=== PATIENT | female | born 1990 | race Two or more races ===

== ENCOUNTER 2024-04-12 18:59 | Emergency (ER) | payer MEDICAID, SELFPAY ==
[2024-04-12 19:03] VITALS: PULSE 83; RESP 18; O2SAT 99
[2024-04-12 20:01] VITALS: BP 118/78; PULSE 78; RESP 18; TEMP 36.9; O2SAT 99
[2024-04-12 20:02] VITALS: BMI 33.3
--- NOTE | 2024-04-12 20:22 | XR_ITS ---
Examination: Abdomen sonogram, Limited Date and time of exam: April 12, 2024: 36 hours Indications: Abdominal pain 2 weeks, alcohol abuse history Technique: Real-time martinez scale transabdominal sonographic images of the upper abdomen obtained. Findings: 2.5 cm gallstone Gallbladder wall 0.3 cm no edema Common bile duct 0.3 cm Pancreatic head 2.8 cm Liver 13.5 cm fatty infiltration no focal liver lesions Normal hepatopedal portal venous flow Patent IVC Impression: Cholelithiasis, negative for cholecystitis Fatty liver
--- NOTE | 2024-04-12 20:22 | PD.EDRME ---
Rapid Medical Screening Exam [facility] Arrival date/time: 04/12/24 18:59 33F with history of daily alcohol intake due to depression presents to ED with 2 weeks of bilateral leg swelling and burning sensation, as well as some RUQ pain. Patient denies N/V and SOB. Time Seen by Provider: 04/12/24 19:02 Vital signs: Vital Signs Temperature 98.5 F 04/12/24 20:01 Pulse Rate 78 04/12/24 20:01 Respiratory Rate 18 04/12/24 20:01 Blood Pressure 118/78 04/12/24 20:01 Pulse Oximetry (%) 99 04/12/24 20:01 Oxygen Delivery Method Room Air 04/12/24 20:01
[2024-04-12 21:22] LABS: Basophils # (Auto) 0.1 Thou/mm3 (0.0-0.2); Basophils % (Auto) 1 % (0-2.5); Eosinophils # (Auto) 0.8 Thou/mm3 (0.0-0.5); Eosinophils % (Auto) 10 % (0-10); Hematocrit 38.3 % (36.0-46.0); Hemoglobin 13.2 g/dL (12.0-16.0); Immature Granulocytes % (Auto) 0 % (0-0); Immature Granulocytes Auto 0.02 Thou/mm3 (0.00-0.00); Lymphocytes # (Auto) 2.8 Thou/mm3 (1.0-4.8); Lymphocytes % (Auto) 33 % (10-50); Mean Corpuscular HGB Conc 34.5 g/dl (31.0-37.0); Mean Corpuscular Hemoglobin 30.1 pg (25.0-35.0); Mean Corpuscular Volume 87 fL (80-100); Monocytes # (Auto) 0.5 Thou/mm3 (0.0-0.8); Monocytes % (Auto) 6 % (0-12); Neutrophils # (Auto) 4.4 Thou/mm3 (1.8-7.7); Neutrophils % (Auto) 51 % (37-80); Nucleated Red Blood Cell % 0 /100 WBC (0); Platelet Count 223 Thou/mm3 (140-440); RDW Standard Deviation 41.1 fL (36.4-46.3); Red Blood Count 4.38 Miln/mm3 (4.00-5.20); White Blood Count 8.6 Thou/mm3 (3.6-11.0)
[2024-04-12 21:46] LABS: Alanine Aminotransferase 23 U/L (10-49); Albumin, Serum 4.3 gm/dL (3.5-5.0); Albumin/Globulin Ratio 1.3 (1.2-2.2); Alcohol, Blood Medical 123.2 mg/dL (0-10.0); Alkaline Phosphatase 118 U/L (46-116); Anion Gap 10 (7-16); Aspartate Amino Transferase 14 U/L (0-34); BUN/Creatinine Ratio 10 Ratio (12-20); Bilirubin,Total 0.2 mg/dL (0.3-1.2); Blood Urea Nitrogen 8 mg/dL (9-23); Calcium 9.7 mg/dL (8.3-10.6); Calcium (Corrected) 9.7 mg/dL (8.5-10.1); Carbon Dioxide 27.2 mMol/L (20.0-31.0); Chloride 105 mMol/L (98-107); Creatinine (Component) 0.8 mg/dL (0.6-1.3); Estimated Creatinine Clearance 113.4 mL/min (>60); Globulin 3.3 gm/dL (2.3-3.5); Glucose 95 mg/dL (74-106); Osmolality,Calculated 281 (275-295); Potassium 4.2 mMol/L (3.4-5.1); Sodium 142 mMol/L (136-145); Total Protein 7.6 gm/dL (5.7-8.2); eGFR > 60 See Note
[2024-04-12 22:32] LABS: Amphetamine/Methamp Scrn,U Negative (Negative); Barbiturate Screen,Urine Negative (Negative); Benzodiazepines Screen,Urine Negative (Negative); Benzoylecgonine Screen, Ur Negative (Negative); Fentanyl Screen,Urine Negative (Negative); Opiate Screen,Urine Positive (Negative); THC Screen,Urine Negative (Negative)
[2024-04-12 22:44] LABS: HCG Qualitative,Urine Negative
--- NOTE | 2024-04-13 01:08 | PD.EDADULT ---
ED General RME/HPI General Chief complaint: Extremity Problem,Nontraumatic Stated complaint: BILATERAL LEG PAIN Time Seen by Provider: 04/12/24 19:02 Arrival date/time: 04/12/24 18:59 RME / HPI RME / HPI narrative: 04/12/24 18:59 33F with history of daily alcohol intake due to depression presents to ED with 2 weeks of bilateral leg swelling and burning sensation, as well as some RUQ pain. Patient denies N/V and SOB. Dr. Villarreal?s Main ED Evaluation: 33yo female presents to the ED for a chief complaint of BLE pain x 2 weeks. Patient states she's had significant pain to her BLE, describing it as burning in nature. She endorses it worsens at night. She states she recently had a baby and has been drinking alcohol daily. She denies any chest pain, shortness of breath, fever, chills or any other associated symptoms. No known allergies. Related Data Previous Rx's ?Medication ?Instructions ?Recorded acetaminophen 500 mg capsule 500 mg PO Q6H PRN pain #40 caps 04/13/24 ibuprofen 600 mg tablet 600 mg PO Q6H PRN pain #20 tabs 04/13/24 Allergies Allergy/AdvReac Type Severity Reaction Status Date / Time No Known Allergies Allergy Verified 04/12/24 19:08 Review of Systems Review of Systems Systems Reviewed: All systems reviewed, normal except as documented Past Medical History Social History SMOKING STATUS: Never smoker ED Exam Narrative Physical exam: GENERAL APPEARANCE: alert and oriented x 4, well-developed, well-nourished, no acute distress VITALS: All vitals were reviewed and the pulse ox is 99% on room air, which is normal according to my interpretation. HEENT: Normocephalic, atraumatic; pupils equal, round, reactive to light; EOMI; mucous membranes pink, moist; oropharynx clear NECK: Supple LUNGS: CTABL; no wheezes, no rales, no rhonchi HEART: Regular rate, regular rhythm; normal S1, S2; no murmurs ABDOMEN: non distended; normal BS; soft, no tenderness, no guarding, no rebound; no masses, no organomegaly, no hernia BACK: no CVA tenderness EXTREMITIES: atraumatic; no edema NEUROLOGIC: awake; alert and oriented x4; cranial nerves II-XII grossly intact; no focal sensory or motor deficits PSYCHIATRIC: appropriate mood and affect SKIN: warm, dry, normal color; no rashes Course Quality Measures none Orders Category Date Time Status US liver Stat Exams 04/12/24 20:22 Completed Alcohol, Blood Medical Stat Lab 04/12/24 20:40 Completed CBC Stat Lab 04/12/24 20:40 Completed CMP [Comprehensive Metabolic Panel] Stat Lab 04/12/24 20:40 Completed Drug Screen,Urine Stat Lab 04/12/24 21:54 Completed HCG Qualitative,Urine Stat Lab 04/12/24 21:54 Completed Acetaminophen Tab [Tylenol ES Tab] Med 04/13/24 01:17 Discontinued 1,000 mg PO X1 ONE Ibuprofen Tab [Motrin Tab] Med 04/13/24 01:17 Discontinued 600 mg PO X1 ONE Vital Signs Vital signs: Vital Signs Temperature 98.5 F 04/12/24 20:01 Pulse Rate 78 04/12/24 20:01 Respiratory Rate 18 04/12/24 20:01 Blood Pressure 118/78 04/12/24 20:01 Pulse Oximetry (%) 99 04/12/24 20:01 Oxygen Delivery Method Room Air 04/12/24 20:01 [facility] Patient data External records reviewed:: [facility] previous records (Per chart review, patient has no previous ED visits or admissions to this facility.) Clinical information provided by:: patient Social determinants that could affect healthcare access:: alcohol use Patient has the following chronic illnesses:: none How is presenting disease/condition affected by chronic disease/condition?: no chronic disease Evaluation data The following diagnostics were reviewed and interpreted by me:: lab results and radiology exam(s) Lab and/or radiology exams considered but not ordered:: none Interpretation Summary: CBC is normal, CMP is normal, HCG is negative, UDS is positive for opiates, Blood Alcohol is 123.2, according to my interpretation. ------ [facility] Report Signed Patient: GARETH TORRES [facility]. Record#: [id number] Birthdate: 1990 Age/Sex: 33 / F Location: [facility] Attending Dr: Ordering Physician: Ryan Spencer PA-C Date of Service: 04/12/24 Procedure(s): US liver Accession Number(s): [id number] cc: Matt Mittal MD; NO PRIMARY/FAMILY,PHYSICIAN; Ryan Spencer PA-C~ Examination: Abdomen sonogram, Limited Date and time of exam: April 12, 2024: 36 hours Indications: Abdominal pain 2 weeks, alcohol abuse history Technique: Real-time martinez scale transabdominal sonographic images of the upper abdomen obtained. Findings: 2.5 cm gallstone Gallbladder wall 0.3 cm no edema Common bile duct 0.3 cm Pancreatic head 2.8 cm Liver 13.5 cm fatty infiltration no focal liver lesions Normal hepatopedal portal venous flow Patent IVC Impression: Cholelithiasis, negative for cholecystitis Fatty liver Dictated By: Matt Mittal MD Signed By: <Electronically signed by Matt Mittal MD in OV> 04/12/24 7503 Medications Medications considered but not ordered:: none Medication administrations:: Medication Administration History Discontinued Medications Acetaminophen (Acetaminophen 500 Mg Tablet) 1,000 mg PO X1 ONE Stop: 04/13/24 01:18 Last Admin: 04/13/24 01:46 Dose: 1,000 mg Documented By: EF Ibuprofen (Ibuprofen Tab 600 Mg Tablet) 600 mg PO X1 ONE Stop: 04/13/24 01:18 Last Admin: 04/13/24 01:46 Dose: 600 mg Documented By: EF see above, if any Consultations Consultation(s) initiated? (list below): No Diagnosis Differential Diagnosis ED Complaint MDM: neuropathy, diabetic neuropathy, rash, contusion Most likely diagnosis given after review of the tests above:: see below Admission Indicated Admission indicated?: not indicated Explain why admission is indicated or not indicated:: Admission criteria not met. Admission Request Was there a request for admission?: No Disposition Plan Disposition Plan: Discharge Discharge Attestation Discharge Attestation: The patient and all family members were given an opportunity to ask questions and understood the discharge instructions. Discharge instructions specifically effects, indications for sooner follow up or return to the emergency department, and the expected course of current diagnosis. Patient condition: Stable Medical Decision Making MDM Narrative MDM Narrative: Scribe Attestation: 04/13/24 - Grace Leahy, kit scribing for and in the presence of Dr. Villarreal. Differential Diagnosis Differential Diagnosis: neuropathy, diabetic neuropathy, rash, contusion Lab Data 04/12/24 20:40 04/12/24 20:40 Labs: Lab Results 04/12/24 04/12/24 Range/Units 20:40 21:54 WBC 8.6 (3.6-11.0) Thou/mm3 RBC 4.38 (4.00-5.20) Miln/mm3 Hgb 13.2 (12.0-16.0) g/dL Hct 38.3 (36.0-46.0) % MCV 87 (80-100) fL MCH 30.1 (25.0-35.0) pg MCHC 34.5 (31.0-37.0) g/dl RDW Std Deviation 41.1 (36.4-46.3) fL Plt Count 223 (140-440) Thou/mm3 Neut % (Auto) 51 (37-80) % Lymph % (Auto) 33 (10-50) % [place] % (Auto) 6 (0-12) % Eos % (Auto) 10 (0-10) % Baso % (Auto) 1 (0-2.5) % Neut # (Auto) 4.4 (1.8-7.7) Thou/mm3 Lymph # (Auto) 2.8 (1.0-4.8) Thou/mm3 [place] # (Auto) 0.5 (0.0-0.8) Thou/mm3 Eos # (Auto) 0.8 H (0.0-0.5) Thou/mm3 Baso # (Auto) 0.1 (0.0-0.2) Thou/mm3 Immature Gran # (Auto) 0.02 H (0.00-0.00) Thou/mm3 Absolute Nucleated RBC 0.00 (0.00-0.00) Thou/mm3 Immature Gran % 0 (0-0) % Nucleated RBC % 0 (0) /100 WBC Sodium 142 (136-145) mMol/L Potassium 4.2 (3.4-5.1) mMol/L Chloride 105 (98-107) mMol/L Carbon Dioxide 27.2 (20.0-31.0) mMol/L Anion Gap 10 (7-16) BUN 8 L (9-23) mg/dL Creatinine 0.8 (0.6-1.3) mg/dL Estim Creat Clear Calc 113.4 (>60) mL/min eGFR > 60 (60 - ) See Note BUN/Creatinine Ratio 10 L (12-20) Ratio Glucose 95 (74-106) mg/dL Calculated Osmolality 281 (275-295) Calcium 9.7 (8.3-10.6) mg/dL Corrected Calcium 9.7 (8.5-10.1) mg/dL Total Bilirubin 0.2 L (0.3-1.2) mg/dL AST 14 (0-34) U/L ALT 23 (10-49) U/L Alkaline Phosphatase 118 H (46-116) U/L Total Protein 7.6 (5.7-8.2) gm/dL Albumin 4.3 (3.5-5.0) gm/dL Globulin 3.3 (2.3-3.5) gm/dL Albumin/Globulin Ratio 1.3 (1.2-2.2) Urine HCG, Qual Negative Urine Opiates Screen Positive A (Negative) Urine Fentanyl Screen Negative (Negative) Ur Barbiturates Screen Negative (Negative) U Amphetamin/Meth Scrn Negative (Negative) U Benzodiazepines Scrn Negative (Negative) U Cocaine Metab Screen Negative (Negative) U Marijuana (THC) Screen Negative (Negative) Ethyl Alcohol 123.2 H (0-10.0) mg/dL Discharge Plan Plan Patient Disposition: HOME (Self Care) Disposition Comment: Stable for discharge Patient condition on transfer: Stable Prescriptions/Referrals Prescriptions/Med Rec: New acetaminophen 500 mg capsule 500 mg PO Q6H PRN (Reason: pain) Qty: 40 0RF ibuprofen 600 mg tablet 600 mg PO Q6H PRN (Reason: pain) Qty: 20 0RF Referrals: [facility] [Outside] - In 1 week No Primary/Family,Physician [Primary Care Provider] - In 1 week Problem List Clinical Impression: Bilateral leg pain Patient/Caregiver Discharge Instructions Discharge Activity: activity as tolerated Education Materials: Complementary Care for Pain, ED Myalgias, ED Pain, Acute, Uncertain Cause Additional Instructions: Please return to the emergency department for any worsening or any further medical problems You should follow-up with your primary care doctor or in the family health care clinic within the next several days Print Language: Russian Stand Alone Forms: Samantha Award Info., Patient Portal Info Letter
[2024-04-13 01:10] VITALS: BP 131/85; PULSE 77; RESP 16; TEMP 37; O2SAT 98
[2024-04-13] MEDS: IBUPROFEN TAB 600 MG TABLET PO (01:46)
[2024-04-13] MEDS: ACETAMINOPHEN 500 MG TABLET 1000 MG PO (01:46)
== END 2024-04-13 02:26 | disposition home or self-care (01) ==
PROVIDERS: Physician Assistant; Emergency Provider Emergency Medicine
DX: M79.604 Pain in right leg (principal); M79.605 Pain in left leg; K80.20 Calculus of gallbladder without cholecystitis without obstruction; K76.0 Fatty (change of) liver, not elsewhere classified; Y90.6 Blood alcohol level of 120-199 mg/100 ml; F10.10 Alcohol abuse, uncomplicated
CPT/HCPCS: 36415; 76705; 80053; 80307; 80320; 81025; 85025; 99284; A9270; G0480

== ENCOUNTER 2024-06-05 09:45 | Emergency (ER) | payer MEDICAID, SELFPAY ==
[2024-06-05 10:11] VITALS: BP 115/82; PULSE 101; RESP 16; TEMP 36.7; O2SAT 96; BMI 38.0
--- NOTE | 2024-06-05 10:14 | EDNOTE_ITS ---
Nausea/Vomit./Diarrhea-RME/HPI General Stated complaint: BILAT SIDE/FLANK PAIN & VOMITING X 2 DAYS; NO EAT Time Seen by Provider: 06/05/24 09:49 Source: patient Arrival date/time: 06/05/24 09:45 34-year-old female with no known medical history presents to the emergency room with a chief complaint of bilateral flank pain, and vomiting x 2 days Mode of arrival: ambulatory Limitations: no limitations Related Data Previous Rx's ?Medication ?Instructions ?Recorded acetaminophen 500 mg capsule 500 mg PO Q6H PRN pain #4 0 caps 04/13/24 ibuprofen 600 mg tablet 600 mg PO Q6H PRN pain #20 t abs 04/13/24 nitrofurantoin 100 mg PO Q12H 5 days #10 ca ps 06/05/24 monohydrate/macrocrystals 100 mg capsule (Macrobid) Allergies Allergy/AdvReac Type Severity Reaction Status Date / Time No Known Allergies Allergy Verified 06/05/24 09:48 Review of Systems Review of Systems Systems Reviewed: All systems reviewed, normal except as documented Constitutional Constitutional: Reports system reviewed and no additional complaints, except as documented, Denies fatigue, Denies fever(s), Denies headache(s) and Denies weakness Eyes Eyes: Reports system reviewed and no additional complaints, except as documented, Denies blurry vision and Denies change in vision ENT Ears, Nose, Mouth, and Throat: Reports system reviewed and no additional complaints, except as documented, Denies otalgia, Denies headache(s), Denies nasal congestion, Denies throat swelling and Denies vertigo Cardiovascular Cardiovascular: Reports system reviewed and no additional complaints, except as documented, Denies chest pain, Denies dyspnea and Denies dyspnea on exertion Respiratory Respiratory: Reports system reviewed and no additional complaints, except as documented, Denies chest congestion, Denies cough, Denies dyspnea, Denies dys pnea on exertion and Denies wheezing Gastrointestinal Gastrointestinal: Reports system reviewed and no additional complaints, except as documented, Denies abdominal pain, Reports cramping, Reports nausea and Reports vomiting Genitourinary Genitourinary: Reports system reviewed and no additional complaints, except as documented Musculoskeletal Musculoskeletal: Reports system reviewed and no additional complaints, except as documented and Reports back pain Integumentary/Breasts Skin/Breast: Reports system reviewed and no additional complaints, except as documented and Denies wounds Neurologic Neurologic: Reports system reviewed and no additional complaints, except as documented, Denies confusion, Denies headache(s), Denies lack of coordination, Denies vertigo and Denies weakness Psychiatric Psychiatric: Reports system reviewed and no additional complaints, except as documented, Denies anxiety, Denies confusion, Denies depression, Denies paranoia, Denies suicidal ideation and Denies tactile hallucinations Endocrine Endocrine: Reports system reviewed and no additional complaints, except as documented and Denies fatigue Hematologic/Lymphatic Hematologic/Lymphatic: Reports system reviewed and no additional complaints, except as documented and Denies lymphadenopathy Allergic/Immunologic Allergic/Immunologic: Reports system reviewed and no additional complaints, except as documented, Denies throat swelling, Denies urticaria and Denies wheezing ED Exam General Limitations: Present no limitations General appearance: Present alert and in no apparent distress Head Head exam: Present atraumatic Eye Eye exam: Present normal appearance, PERRL and EOMI ENT ENT exam: Present normal exam, normal oropharynx and mucous membranes moist Neck Neck exam: Present normal inspection, full ROM and trachea midline Chest Chest inspection: Present normal inspection and symmetric chest wall rise Respiratory Respiratory exam: Present normal lung sounds bilaterally Cardiovascular Cardiovascular exam: Present regular rate, normal rhythm and normal heart sounds Abdominal Exam Abdominal exam: Present soft, tenderness and normal bowel sounds Abdominal tenderness: Present RUQ and moderate Extremities Exam Extremities exam: Present normal inspection and full ROM Back Exam Back exam: Present normal inspection, full ROM, CVA tenderness (R) and CVA tenderness (L) Neurological Exam Neurological exam: Present alert, oriented X3 and CN II-XII intact Psychiatric Psychiatric exam: Present normal affect and normal mood Skin Skin exam: Present warm, dry, intact and normal color Course Quality Measures none Orders Category Date Time Status CT abdomen pelvis wo con Stat Exams 06/05/24 10:14 Completed CBC Stat Lab 06/05/24 10:20 Completed CMP [Comprehensive Metabolic Panel] Stat Lab 06/05/24 10:20 Completed Drug Screen,Urine Stat Lab 06/05/24 10:45 Completed HCG Qualitative,Urine Stat Lab 06/05/24 10:45 Completed Lipase Stat Lab 06/05/24 10:20 Completed UA [Urinalysis] Stat Lab 06/05/24 10:45 Completed Urine Culture Stat Lab 06/05/24 10:45 Received Ondansetron Inj [Zofran Inj] Med 06/05/24 10:09 Discontinued 4 mg IM X1 ONE Vital Signs Vital signs: Vital Signs Temperature 98.0 F 06/05/24 10:11 Pulse Rate 101 H 06/05/24 10:11 Respiratory Rate 16 06/05/24 10:11 Blood Pressure 115/82 06/05/24 10:11 Pulse Oximetry (%) 96 06/05/24 10:11 Oxygen Delivery Method Room Air 06/05/24 10:11 O2 saturation 96% within normal limits Nausea/Vomiting/Diarrhea MDM Narrative MDM Narrative:: 34-year-old female with no known medical history presents to the emergency room with a chief complaint of bilateral flank pain, and vomiting x 2 days Patient is hemodynamically stable and in no apparent distress Physical examination shows bilateral flank pain and vomiting x 2 days. Patient is also having some lower abdominal cramping. CBC CMP were negative for any acute findings Urinalysis showed a urinary tract infection. Antibiotics are sent to the patient's pharmacy. For any evidence of worsening signs or symptoms return to the emergency room immediately Patient data External records reviewed:: [facility] previous records Clinical information provided by:: patient Social determinants that could affect healthcare access:: none Patient has the following chronic illnesses:: No chronic illness How is presenting disease/condition affected by chronic disease/condition?: no chronic disease Evaluation data The following diagnostics were reviewed and interpreted by me:: lab results and radiology exam(s) Lab and/or radiology exams considered but not ordered:: Labs and radiology exams considered and ordered Interpretation Summary: CT abdomen and pelvis-Findings: Fluid distended lower esophagus with wall thickening lower esophagus No focal liver or splenic lesions Gallstones Spleen not enlarged No adrenal mass Mild bilateral renal parenchymal scar formation No renal or ureteral calculi, no hydronephrosis Normal appendix No bowel obstruction No diverticulitis. No pelvic mass Contracted urinary bladder which shows mild wall thickening up to 3 mm IMPRESSION: Fluid distended lower esophagus with wall thickening lower esophagus, consider reflux esophagitis Mild bilateral renal parenchymal scar formation No renal or ureteral calculi, no hydronephrosis Mild bilateral renal parenchymal scar formation Cystitis pattern Medications / Prescriptions Medications / Prescriptions considered but not ordered:: Medication given Medication administrations:: Medication Administration History Discontinued Medications Ondansetron HCl (Ondansetron Inj 2 Mg/Ml Inj 2 Ml) 4 mg IM X1 ONE; Protocol Stop: 06/05/24 10:10 Last Admin: 06/05/24 10:44 Dose: 4 mg Documented By: KM Medication given Consultations Consultation(s) initiated? (list below): No Diagnosis Nausea Differential Diagnosis: food poisoning, gastroenteritis, drug-induced nausea and vomiting, dehydration and other (Urinary tract infection) Most likely diagnosis given after review of the tests above:: Urinary tract infection Admission Indicated Admission indicated?: not indicated Admission Request Was there a request for admission?: No Disposition Plan Disposition Plan: Discharge Discharge Attestation Discharge Attestation: The patient and all family members were given an opportunity to ask questions and understood the discharge instructions. Discharge instructions specifically effects, indications for sooner follow up or return to the emergency department, and the expected course of current diagnosis. Patient condition: Stable Discharge Plan Plan Patient Disposition: HOME (Self Care) Disposition Comment: Stable Prescriptions/Referrals Prescriptions/Med Rec: New nitrofurantoin monohyd/m-cryst [Macrobid] 100 mg capsule 100 mg PO Q12H 5 Days Qty: 10 0RF Rx Instructions: must administer with a meal/food No Action acetaminophen 500 mg capsule 500 mg PO Q6H PRN (Reason: pain) Qty: 40 0RF ibuprofen 600 mg tablet 600 mg PO Q6H PRN (Reason: pain) Qty: 20 0RF Referrals: Chavo French MD [Primary Care Provider] - In 1 week Problem List Clinical Impression: Urinary tract infection Patient/Caregiver Discharge Instructions Education Materials: ED CYSTITIS Female Adult Additional Instructions: Please follow-up with your primary care provider in the next 24 to 48 hours. Urinalysis showed a urinary tract infection. Antibiotics are sent to your pharmacy please pick them up and take them as indicated. For any evidence of worsening signs or symptoms return to emergency room immediately Print Language: Tajik Stand Alone Forms: Samantha Award Info., Patient Portal Info Letter DELONTE/PARISA Supervising Physician DELONTE/PARISA Supervising Physician: Dr. Ramirez
--- NOTE | 2024-06-05 10:14 | XR_ITS ---
Examination: CT abdomen and pelvis without contrast. Coronal 3-D reconstructions. Sagittal 2-D reconstructions. Date and time of exam:June 05, 2024 1216 hours INDICATIONS: Bilateral flank pain with nausea vomiting today CTDI: vol (mGy): 11.3 DLP: (mGycm): 708 Technique: Axial images of the abdomen have been obtained, 3 mm slice thickness Intravenous contrast material has not been administered. Low dose protocols were performed. One or more of the following dose reduction techniques were used; automated exposure control, adjustment of the mA and/or KV according to patient size, use of iterative reconstruction technique. Findings: Fluid distended lower esophagus with wall thickening lower esophagus No focal liver or splenic lesions Gallstones Spleen not enlarged No adrenal mass Mild bilateral renal parenchymal scar formation No renal or ureteral calculi, no hydronephrosis Normal appendix No bowel obstruction No diverticulitis. No pelvic mass Contracted urinary bladder which shows mild wall thickening up to 3 mm IMPRESSION: Fluid distended lower esophagus with wall thickening lower esophagus, consider reflux esophagitis Mild bilateral renal parenchymal scar formation No renal or ureteral calculi, no hydronephrosis Mild bilateral renal parenchymal scar formation Cystitis pattern
[2024-06-05 10:29] LABS: Basophils % (Auto) 1 % (0-2.5); Eosinophils # (Auto) 0.9 Thou/mm3 (0.0-0.5); Eosinophils % (Auto) 12 % (0-10); Hematocrit 42.7 % (36.0-46.0); Hemoglobin 14.4 g/dL (12.0-16.0); Immature Granulocytes % (Auto) 0 % (0-0); Immature Granulocytes Auto 0.02 Thou/mm3 (0.00-0.00); Lymphocytes # (Auto) 1.3 Thou/mm3 (1.0-4.8); Lymphocytes % (Auto) 18 % (10-50); Mean Corpuscular HGB Conc 33.7 g/dl (31.0-37.0); Mean Corpuscular Hemoglobin 29.9 pg (25.0-35.0); Mean Corpuscular Volume 89 fL (80-100); Monocytes # (Auto) 0.4 Thou/mm3 (0.0-0.8); Monocytes % (Auto) 6 % (0-12); Neutrophils # (Auto) 4.6 Thou/mm3 (1.8-7.7); Neutrophils % (Auto) 64 % (37-80); Nucleated Red Blood Cell % 0 /100 WBC (0); Platelet Count 251 Thou/mm3 (140-440); RDW Standard Deviation 42.6 fL (36.4-46.3); Red Blood Count 4.81 Miln/mm3 (4.00-5.20); White Blood Count 7.3 Thou/mm3 (3.6-11.0)
[2024-06-05] MEDS: ONDANSETRON INJ 2 MG/ML INJ 2 ML 4 MG IM (10:44)
[2024-06-05 10:48] LABS: Alanine Aminotransferase 38 U/L (10-49); Albumin, Serum 4.8 gm/dL (3.5-5.0); Albumin/Globulin Ratio 1.3 (1.2-2.2); Alkaline Phosphatase 122 U/L (46-116); Anion Gap 9 (7-16); Aspartate Amino Transferase 27 U/L (0-34); BUN/Creatinine Ratio 9 Ratio (12-20); Bilirubin,Total 0.6 mg/dL (0.3-1.2); Blood Urea Nitrogen 9 mg/dL (9-23); Calcium 9.8 mg/dL (8.3-10.6); Calcium (Corrected) 9.8 mg/dL (8.5-10.1); Carbon Dioxide 27.4 mMol/L (20.0-31.0); Chloride 105 mMol/L (98-107); Estimated Creatinine Clearance 103.3 mL/min (>60); Globulin 3.6 gm/dL (2.3-3.5); Glucose 106 mg/dL (74-106); Lipase 38 U/L (12-53); Osmolality,Calculated 279 (275-295); Potassium 4.2 mMol/L (3.4-5.1); Sodium 141 mMol/L (136-145); Total Protein 8.4 gm/dL (5.7-8.2); eGFR > 60 See Note
[2024-06-05 11:12] LABS: Collection Type, Urine Clean Catch
[2024-06-05 11:22] LABS: Bacteria,Urine Rare; Bilirubin,Urine Negative (Negative); Blood,Urine Trace (Negative); Color,Urine Yellow (Lt Yel-Yel); Glucose, Urine Negative (Negative); Ketones,Urine Trace (Negative); Leukocyte Esterase,Urine Positive (Negative); Nitrite,Urine Negative (Negative); PH,Urine 5.5 (5.0-7.0); Protein,Urine 1+ (Neg - Trace); RBC,Urine 9 /hpf (0-3); Specific Gravity,Urine 1.027 (1.001-1.035); Squamous Epithelial Cell,Urine 15 /hpf (0-5); Urobilinogen,Urine Negative mg/dL (0.0-1.0); WBC,Urine 42 /hpf (0-5)
[2024-06-05 11:25] LABS: Amphetamine/Methamp Scrn,U Negative (Negative); Barbiturate Screen,Urine Negative (Negative); Benzodiazepines Screen,Urine Negative (Negative); Benzoylecgonine Screen, Ur Negative (Negative); Fentanyl Screen,Urine Negative (Negative); Opiate Screen,Urine Negative (Negative); THC Screen,Urine Negative (Negative)
[2024-06-05 11:35] LABS: Clarity,Urine Hazy (Clear/Hazy)
[2024-06-05 11:36] LABS: HCG Qualitative,Urine Negative
== END 2024-06-05 14:00 | disposition home or self-care (01) ==
PROVIDERS: Nurse Practitioner Family; Emergency Provider Emergency Medicine; PCP Family Medicine
DX: N39.0 Urinary tract infection, site not specified (principal)
CPT/HCPCS: 36415; 74176; 80053; 80307; 81001; 81025; 83690; 85025; 87086; 96372; 99284; J2405

== ENCOUNTER 2024-07-19 17:57 | Emergency (ER) | payer MEDICAID, SELFPAY ==
[2024-07-19 18:12] VITALS: BP 127/82; PULSE 88; RESP 18; TEMP 36.8; O2SAT 95
[2024-07-19 18:22] VITALS: PULSE 84; RESP 18; O2SAT 98
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
[2024-07-19] MEDS: LEVOFLOXACIN 250 MG TABLET 500 MG PO (20:51)
[2024-07-19] MEDS: DIPHTH,PERTUSS(ACELL),TET VAC 0.5 ML SYR- ADULT IMi (20:51)
[2024-07-19] MEDS: BACITRACIN OINT 1 GM PACKET TOP (20:52)
== END 2024-07-19 20:15 | disposition home or self-care (01) ==
PROVIDERS: Emergency Provider Emergency Medicine; PCP Family Medicine
DX: T25.121A Burn of first degree of right foot, initial encounter (principal); Z23 Encounter for immunization
CPT/HCPCS: 90471; 90715; 99282; A9270

== ENCOUNTER 2024-07-22 08:41 | Emergency (ER) | payer MEDICAID, SELFPAY ==
[2024-07-22 08:42] VITALS: BMI 41.1
[2024-07-22 08:50] VITALS: BP 145/100; PULSE 132; RESP 18; TEMP 36.6; O2SAT 99
--- NOTE | 2024-07-22 08:53 | XR_ITS ---
Examination: PA lateral chest 2 views TECHNIQUE: Upright PA lateral chest 2 views Date and time: July 22, 2024 1015 hours INDICATIONS: Generalized chest pain today FINDINGS: Normal heart size. Lungs are clear. Osseous structures are intact IMPRESSION: No active disease
--- NOTE | 2024-07-22 08:53 | EKG_ITS ---
[facility] Test Date: 2024-07-22 Pat Name: GARETH TORRES Department: Room: - Gender: Female Acute Care Physical Therapist: : 1990 Requested By: Naeem Brady Order Number: [id number] Reading MD: Naeem Brady Measurements Intervals [place] Rate: 133 P: 24 [place]: 128 QRS: 38 QRSD: 82 T: 43 QT: 285 QTc: 425 Interpretive Statements SINUS TACHYCARDIA POSSIBLE RIGHT VENTRICULAR CONDUCTION DELAY [RSR (QR) IN V1/V2] ABNORMAL RHYTHM ECG No previous ECG available for comparison /[id number]/[email or web address]/[id number]
== END 2024-07-22 11:07 | disposition left against medical advice (07) ==
LOC: SERX 16:37
PROVIDERS: Emergency Provider Emergency Medicine
DX: R07.9 Chest pain, unspecified (principal); Z53.29 Procedure and treatment not carried out because of patient's decision for other reasons
CPT/HCPCS: 71046; 80053; 80307; 81001; 83735; 83880; 84484; 85025; 93005; 99281